=== PATIENT | male | born 1955 | race Caucasian/White ===

== ENCOUNTER 2021-07-24 18:04 | Observation (INO) | payer OTHER, SELFPAY ==
[2021-07-24 19:04] LABS: #Basophils 0.1 thou/uL (0.0-0.2); #Eosinphils 0.1 thou/uL (0.0-0.7); #Lymphocytes 2.2 thou/uL (1.20-3.40); #Monocytes 0.9 thou/uL (0.11-0.59); #Neutrophils 7.5 thou/uL (1.40-6.50); %Basophils 0.5 % (0.0-1.0); %Eosinophils 1.3 % (0.0-10.0); %Monocytes 8.4 % (0.0-10.0); %Neutrophils 69.8 % (42.0-75.0); Hemoglobin 15.2 g/dL (14.0-18.0); Mean Corpuscular HGB CONC 34.2 g/dL (32.0-36.0); Mean Corpuscular Volume 99.3 fL (78.0-98.0); Mean Platelet Volume 7.3 fL (7.4-10.4); Platelet Count 243 thou/uL (130-400); RBC Distribution Width 12.2 % (11.5-14.5); Red Blood Cell (RBC) Count 4.47 mill/uL (4.70-6.10); White Blood Cell (WBC) Count 10.8 thou/uL (4.8-10.8)
[2021-07-24 19:26] LABS: ALT (SGPT) 29 U/L (8-55); AST (SGOT) 29 U/L (5-34); Acetaminophen Less than 6.0 mcg/mL (10.0-30.0); Albumin 3.7 g/dL (3.4-4.8); Alcohol 16 mg/dL (Less than 10); Alkaline Phosphatase 175 U/L (40-110); Anion Gap 12 mmol/L (10-20); BUN (Urea Nitrogen) 9 mg/dL (8.4-25.7); Bilirubin, Total 0.5 mg/dL (0.2-1.2); Calc. Creatinine Clearance 0 mL/min (70-130); Calcium 8.8 mg/dL (7.8-10.44); Carbon Dioxide 27 mmol/L (23-31); Chloride 98 mmol/L (98-107); Globulin 3.5 g/dL (2.4-3.5); Glucose 94 mg/dL (80-115); Lipase 32 U/L (8-78); Potassium 3.8 mmol/L (3.5-5.1); Protein, Total 7.2 g/dL (5.8-8.1); Salicylate Less than 8.0 mg/dL (15.0-30.0); Sodium 133 mmol/L (136-145)
[2021-07-24] MEDS ORDERED: Thiamine HCl 200 MG/2 ML VIAL SLOW IVP SCH (21:15)
[2021-07-24 22:44] LABS: SARS-CoV-2 NAA Rapid Test Not Detected (NotDetected)
[2021-07-24] MEDS ORDERED: Electrolyte Replacement Protocol 1 EACH FS SCH (23:15)
[2021-07-24] MEDS ORDERED: Acetaminophen 325 MG TAB PO PRN (23:19)
[2021-07-24] MEDS ORDERED: Ondansetron ODT 4 MG TAB PO PRN (23:19)
[2021-07-25] MEDS ORDERED: Ondansetron ODT 4 MG TAB PO PRN
[2021-07-25] MEDS ORDERED: Lorazepam 2 MG/ML VIAL IM PRN
[2021-07-25] MEDS ORDERED: Electrolyte Replacement Protocol 1 EACH FS PRN
[2021-07-25] MEDS ORDERED: Lorazepam 1 MG TAB PO PRN
[2021-07-25 00:02] LABS: Magnesium 1.8 mg/dL (1.6-2.6)
[2021-07-25] MEDS ORDERED: Multivitamins, Adult 10 ML, Folic Acid 1 MG in Dextrose 5 %-0.45 % NaCl 1,000 ML IV SCH (01:00)
[2021-07-25] MEDS ORDERED: Magnesium 2 GM/50 ML 2 GM in Premix Bag 1 BAG IVPB SCH (01:15)
[2021-07-25] MEDS ORDERED: Magnesium 2 GM/50 ML BAG (IN WATER) ONE (02:38)
[2021-07-25] MEDS ORDERED: Ondansetron ODT 4 MG TAB ONE (02:55)
[2021-07-25] MEDS ORDERED: Lorazepam 1 MG TAB ONE (05:40)
[2021-07-25] MEDS: Lorazepam 1 MG TAB PO SCH ×3 (05:43→22:26)
[2021-07-25 05:51] LABS: #Basophils 0.1 thou/uL (0.0-0.2); #Eosinphils 0.1 thou/uL (0.0-0.7); #Lymphocytes 2.3 thou/uL (1.20-3.40); #Monocytes 0.7 thou/uL (0.11-0.59); #Neutrophils 4.1 thou/uL (1.40-6.50); %Basophils 0.7 % (0.0-1.0); %Eosinophils 1.3 % (0.0-10.0); %Lymphocytes 31.3 % (21.0-51.0); %Monocytes 10.2 % (0.0-10.0); %Neutrophils 56.6 % (42.0-75.0); Hemoglobin 14.1 g/dL (14.0-18.0); Mean Corpuscular HGB CONC 34.3 g/dL (32.0-36.0); Mean Corpuscular Hemoglobin 33.9 pg (27.0-31.0); Mean Corpuscular Volume 98.9 fL (78.0-98.0); Mean Platelet Volume 7.3 fL (7.4-10.4); Platelet Count 219 thou/uL (130-400); RBC Distribution Width 12.1 % (11.5-14.5); Red Blood Cell (RBC) Count 4.16 mill/uL (4.70-6.10); White Blood Cell (WBC) Count 7.3 thou/uL (4.8-10.8)
[2021-07-25 06:16] LABS: Anion Gap 9 mmol/L (10-20); BUN (Urea Nitrogen) 8 mg/dL (8.4-25.7); Calc. Creatinine Clearance 0 mL/min (70-130); Calcium 8.3 mg/dL (7.8-10.44); Carbon Dioxide 26 mmol/L (23-31); Chloride 101 mmol/L (98-107); Glucose 79 mg/dL (80-115); Potassium 3.3 mmol/L (3.5-5.1); Sodium 133 mmol/L (136-145)
[2021-07-25] MEDS ORDERED: Folic Acid 1 MG TAB ONE (09:17)
[2021-07-25] MEDS: Folic Acid 1 MG TAB PO SCH (09:21)
[2021-07-25] MEDS: Multivit, Therapeutic 1 TAB PO SCH (09:21)
[2021-07-25] MEDS ORDERED: Potassium Chloride 20 MEQ TAB PO SCH (11:30)
[2021-07-25] MEDS ORDERED: Potassium Chloride 20 MEQ TAB ONE (12:28)
[2021-07-25 14:05] VITALS: BMI 23.8
[2021-07-25] MEDS ORDERED: FLU VACC QS2021-22(6MOS UP)/PF 60 MCG/0.5 ML SYRINGE IM ONE (14:15)
[2021-07-25] MEDS: Sodium Chloride 0.9% 1,000 ML IV SCH ×2 (16:25→22:26)
[2021-07-25] MEDS ORDERED: Thiamine HCl 200 MG/2 ML VIAL SLOW IVP SCH (22:00)
[2021-07-26] MEDS ORDERED: Lorazepam 1 MG TAB PO PRN
[2021-07-26] MEDS ORDERED: Lorazepam 1 MG TAB PO SCH (05:00)
[2021-07-26 05:43] LABS: #Basophils 0.1 thou/uL (0.0-0.2); #Eosinphils 0.1 thou/uL (0.0-0.7); #Lymphocytes 2.8 thou/uL (1.20-3.40); #Monocytes 0.6 thou/uL (0.11-0.59); #Neutrophils 2.9 thou/uL (1.40-6.50); %Basophils 0.8 % (0.0-1.0); %Eosinophils 2.3 % (0.0-10.0); %Monocytes 8.5 % (0.0-10.0); %Neutrophils 45.4 % (42.0-75.0); Hemoglobin 13.3 g/dL (14.0-18.0); Mean Corpuscular HGB CONC 33.9 g/dL (32.0-36.0); Mean Corpuscular Hemoglobin 33.9 pg (27.0-31.0); Mean Platelet Volume 7.6 fL (7.4-10.4); Platelet Count 197 thou/uL (130-400); RBC Distribution Width 12.1 % (11.5-14.5); Red Blood Cell (RBC) Count 3.91 mill/uL (4.70-6.10); White Blood Cell (WBC) Count 6.5 thou/uL (4.8-10.8)
[2021-07-26 06:09] LABS: Anion Gap 9 mmol/L (10-20); BUN (Urea Nitrogen) 8 mg/dL (8.4-25.7); Calc. Creatinine Clearance 64 mL/min (70-130); Calcium 8.2 mg/dL (7.8-10.44); Carbon Dioxide 26 mmol/L (23-31); Chloride 106 mmol/L (98-107); Glucose 103 mg/dL (80-115); Potassium 3.7 mmol/L (3.5-5.1); Sodium 137 mmol/L (136-145)
[2021-07-26] MEDS: Sodium Chloride 0.9% 1,000 ML IV SCH (06:24)
[2021-07-26] MEDS: Lorazepam 1 MG TAB PO SCH ×2 (06:24→13:25)
[2021-07-26 08:23] VITALS: TEMP 97.4
[2021-07-26] MEDS: Folic Acid 1 MG TAB PO SCH (09:39)
[2021-07-26] MEDS: Multivit, Therapeutic 1 TAB PO SCH (09:39)
[2021-07-26 12:00] VITALS: BP 140/82
[2021-07-27] MEDS ORDERED: Lorazepam 1 MG TAB PO PRN
[2021-07-27] MEDS ORDERED: Lorazepam 0.5 MG TAB PO SCH (06:00)
[2021-07-27] MEDS ORDERED: Thiamine 100 MG TAB PO SCH (09:00)
[2021-07-28] MEDS ORDERED: Lorazepam 0.5 MG TAB PO PRN (06:00)
== END 2021-07-26 16:32 | disposition home or self-care (01) ==
LOC: ERS 18:04 → ERHOLD 21:47 → 2SW 07-25 12:47
PROVIDERS: ADMIT Internal Medicine; ATTEND Internal Medicine
DX: R55 Syncope and collapse (principal); I95.9 Hypotension, unspecified; E87.1 Hypo-osmolality and hyponatremia; F10.10 Alcohol abuse, uncomplicated; G89.29 Other chronic pain; M54.41 Lumbago with sciatica, right side; M54.42 Lumbago with sciatica, left side; R63.8 Other symptoms and signs concerning food and fluid intake; I11.9 Hypertensive heart disease without heart failure; E78.5 Hyperlipidemia, unspecified; M47.816 Spondylosis without myelopathy or radiculopathy, lumbar region; I08.8 Other rheumatic multiple valve diseases; Z87.891 Personal history of nicotine dependence; Z88.8 Allergy status to other drugs, medicaments and biological substances; Z20.822 Contact with and (suspected) exposure to COVID-19
CPT/HCPCS: 36415; 70450; 72100; 80048; 80053; 80307; 83690; 83735; 84484; 85025; 93005; 93306; 96374; 96376; G0378; J3411; J3475; J7042; J7050; Q0162; U0002

== ENCOUNTER 2022-11-07 10:28 | Outpatient (CLI) | payer MEDICARE | END 2022-11-07 10:29 | disposition home or self-care (01) | LOC: BICULT 10:28 | PROVIDERS: ATTEND Registered Nurse | DX: Z00.00 Encounter for general adult medical examination without abnormal findings (principal); Z13.6 Encounter for screening for cardiovascular disorders | CPT/HCPCS: 76775 ==